=== PATIENT | female | born 1975 | race Caucasian/White ===

== ENCOUNTER 2022-07-22 15:49 | Emergency (ER) | payer MEDICAID ==
[~2022-07-22] VITALS: Ht 167.6 cm; Wt 65.0 kg
[2022-07-22 15:51] VITALS: BP 103/68
[2022-07-22] MEDS ORDERED: ketorolac trometh inj. 60 MG/2 ML VIAL IM ONE (16:45)
[2022-07-22] MEDS ORDERED: IBUP-1986 PO (16:48)
== END 2022-07-22 17:04 | disposition home or self-care (01) ==
LOC: ER 15:50
DX: S60.011A Contusion of right thumb without damage to nail, initial encounter (principal); X58.XXXA Exposure to other specified factors, initial encounter; Y93.89 Activity, other specified; Y92.89 Other specified places as the place of occurrence of the external cause; Y99.8 Other external cause status
CPT/HCPCS: 29125; 73130; 96372; 99283; J1885

== ENCOUNTER 2024-04-23 15:33 | Outpatient (CLI) | payer MEDICAID ==
[~2024-04-23 15:33] MED LIST: IBUP-1986 PO
[2024-04-23 16:09] VITALS: PULSE 84; RESP 16; O2SAT 96
== END 2024-04-23 23:59 | disposition home or self-care (01) ==
LOC: RT 15:33
PROVIDERS: ATTEND Nurse Practitioner Family
DX: J45.41 Moderate persistent asthma with (acute) exacerbation (principal)
CPT/HCPCS: 94010; 94760

== ENCOUNTER 2024-09-25 12:57 | Emergency (ER) | payer MEDICAID ==
[~2024-09-25] VITALS: Ht 167.6 cm; Wt 84.5 kg
[2024-09-25 13:00] VITALS: TEMP 97.9
[2024-09-25 13:34] LABS: MEAN PLATELET VOLUME 9.0 FL (7.4-10.4); RED CELL DISTRIBUTION WIDTH 12.7 % (11.5-14.5)
[2024-09-25 13:51] LABS: CREATININE 0.76 MG/DL (0.40-0.90); TOTAL CARBON DIOXIDE 26.5 MMOL/L (24-32); eCRCL 84 ML/MIN; eGFR 81 ML/MIN
--- NOTE | 2024-09-25 14:41 | RADIOLOGY REPORT ---
Exam: CT CT ABDOMEN PELVIS History: llq pain Comparison Study: None TECHNIQUE: Multidetector CT of the abdomen and pelvis without contrast. Imaging was performed without IV contrast. Axial, coronal and sagittal multiplanar reformats were obtained from the axial data set by the technologist. Radiation Dose Information: CT Dose: CTDI volume is 25.57 mGy. Dose-length product is 1361.81 mGy*cm FINDINGS: Bibasilar atelectasis. Partially visualized heart is unremarkable. Liver, spleen, pancreas and adrenal glands unremarkable. Status post cholecystectomy. Kidneys and ureters unremarkable. [id number] distention of the urinary bladder. Otherwise, th e urinary bladder is unremarkable. Uterus and adnexa unremarkable. Stomach is unremarkable. Mild wall thickening of fluid-filled small bowel segment within the left hem iabdomen without significant distention. The remainder of the small bowel loops unremarkable. Appendix is unremarkable. Small to moderate amount of fecal material within the colon. Large bowel is otherwise unremarkable. No evidence of intraperitoneal free air or free fluid. No evidence of aortic aneurysm. No significant lymphadenopathy. Tiny fat containing umbilical hernia. The soft tissues unremarkable. No destructive osseous lesions are noted. IMPRESSION: Segmental wall thickening of fluid-filled nondistended small bowel within the left hemiabdomen. Isis elate for enteritis. Khiw-ub-ocoqchze distention of the urinary bladder. Otherwise, the urinary bladder is unremarkable.
--- NOTE | 2024-09-25 14:47 | Physician Documentation ---
History of Present Illness Chief Complaint: Abdominal Pain Stated Complaint: ABD PAIN Time Seen by MD: 13:10 Mode of Arrival: POV, Ambulatory HPI 38-year-old female presents to the ED with a complaint of left lower quadrant pain and ongoing constipation. States that she has not last bowel movement yesterday and it was hard and nitro. Denies any fevers. However, she does take Wegovy. Last Menstrual Period: Sep 25, 2024 Medication Reconciliation Allergies: Coded Allergies: No Known Allergies (Unverified , 09/25/24) Scheduled Ibuprofen (Ibuprofen), 1 TAB PO Q8H Past Medical History Past Medical History: No Pertinent History Past Surgical History: no surgical history Last Menstrual Period: Sep 25, 2024 Lives with: Spouse Lives In: Home Occupation: employed Physical Exam Vital Signs: Temperature: 97.9, Source: Temporal, Heart Rate: 88, Respiratory Rate: 15, BP: 118/91, Pulse Oximetry: 99, Weight: 84.450 Oxygen Flow Rate: 0 Physical Exam General: Alert, no apparent distress. Cardiovascular: Regular rate and rhythm, no murmurs. Gastrointestinal: Soft, n tender to the left lower quadrant Psychiatric: Normal mood and affect. Skin: Normal color, warm and dry. No edema, no ecchymosis. Progress Results/Orders Results/Orders Orders - FAHEEM ADAME DRYWALLER Ct Abdomen Pelvis (09/25/24 14:17) Magnesium Citrate Oral Deb. (Magnesium C (09/25/24 14:45) Completed Orders - FAHEEM ADAME DRYWALLER Ct Abdomen Pelvis (09/25/24 14:17) Vital Signs 09/25/24 09/25/24 09/25/24 13:00 13:25 14:01 Temp 97.9 Pulse 108 88 Resp 20 16 15 B/P (MAP) 113/86 118/91 (100) Pulse Ox 99 99 O2 Flow Rate 0 0 Laboratory Tests Test 09/25/24 13:10 White Blood Count 11.9 H Red Blood Count 4.36 Hemoglobin 13.5 Hematocrit 39.2 Mean Corpuscular Volume 89.7 Mean Corpuscular Hemoglobin 31.0 Mean Corpuscular Hemoglobin Concent 34.6 Red Cell Distribution Width 12.7 Platelet Count 375 Mean Platelet Volume 9.0 Neutrophils (%) (Auto) 72.6 Lymphocytes (%) (Auto) 21.6 Monocytes (%) (Auto) 4.7 Eosinophils (%) (Auto) 0.8 Basophils (%) (Auto) 0.3 Neutrophils # (Auto) 8.6 H Lymphocytes # (Auto) 2.6 Monocytes # (Auto) 0.6 Eosinophils # (Auto) 0.1 Basophils # (Auto) 0.0 CBC Comment Sodium Level 135 Potassium Level 3.6 Chloride Level 99 Carbon Dioxide Level 26.5 Anion Gap 10 Blood Urea Nitrogen 11 Creatinine 0.76 Estimated GFR/1.73 m2 81 BUN/Creatinine Ratio 14.5 Glucose Level 92 Calcium Level 8.7 Total Bilirubin 0.5 Aspartate Amino Transf (AST/SGOT) 11 Alanine Aminotransferase (ALT/SGPT) 22 Alkaline Phosphatase 73 Total Protein 8.0 Albumin 3.8 Globulin 4.2 Albumin/Globulin Ratio 0.9 L Lipase 65 Chemistry Comments Medical Decision Making Findings Patient's CT did not indicate any signs and some small bowel obstruction or diverticulitis on laboratory values were mostly reassuring. I suspect patient's symptoms are likely secondary to GLP 1 on drugs mechanism of action to delay gastric motility essentially causing constipation Differential Dx:Considerations: Include: AAA, -Complete, - Incomplete, -Inevitable, -Missed, -Threatened, Abruptio placentae, Angina/WA, Aortic dissection, Appendicitis, Bowel obstruction, Cholangitis, Cholelithasis, Constipation, Diverticular disease, Esophageal rupture, Esophagitis, Gastritis/PUD, Gastroenteritis, GI hemorrhage, Hernia, Hepatitis, Inflammatory BD, Ischemic bowel, Ovarian cyst/torsion, Pancreatitis, PID, Porphyria, Trauma, intraabdominal, Urinary obstruction, Urinary tract infection, Urolithiasis, Other Departure Disposition: 01 HOME / SELF CARE / HOMELESS Impression: Primary Impression: Abdominal pain Additional Impression: Constipated Discharge Instructions: Constipation, Adult, [id number] Additional Instructions: When taking drugs like Wegovy and Ozempic it is important to maintain your bowel movements with stool softeners like a MiraLax Referrals: NO PRIMARY CARE PROVIDER (PCP) Education Educated: Patient Educated regarding: diagnosis Signature Scribe Signature: gb Attestation: Scribed for Faheem Adame Job Printer by Faheem Long NP . 09/25/24 18:08 FAHEEM ADAME NP Sep 25, 2024 14:46
[2024-09-25] MEDS: HYDROcodone/acetaminophen 10/325mg tab PO ONE (15:03)
[2024-09-25] MEDS: magnesium citrate 296ml oral solution PO ONE (15:34)
--- NOTE | 2024-09-25 15:41 | RADIOLOGY REPORT ---
Procedure: US ULTRASOUND PELVIS W/ORWO DPLX [facility] Study Date and Requested Time: 09/25/2024 03:13 PM Study Description: US ULTRASOUND PELVIS W/ORWO DPLX History: HX of endmetrioisis , left inguinal pain Comparison: None Technique: Multiple transabdominal and transvaginal high resolution luna-scale images obtained of the uterus and adnexa with color Doppler for evaluation of adnexal blood flow and vascularity as indicat ed. Findings: Uterus normal in size, measuring 8.6 x 4.8 x 5.2 cm, with homogeneous echotexture. Endometrium within normal limits, measuring 1.3 cm in thickness with smooth contour. Cervix within normal limits. Right ovary measures 3.6 x 2.8 x 3.7 cm. Left ovary measures 4.1 x 3.7 x 3.2 cm. Normal ovarian color Doppler flow bilaterally. No evidence of cystic or solid ovarian lesions. No evidence of free fluid in the cul-de-sac. Impression: Unremarkable sonographic study of the pelvis. Endometrial thickness of 1.3 cm. Recommend correlation with phase of menstrual cycle.
[2024-09-25 16:06] VITALS: BP 111/79; PULSE 102; RESP 16; O2SAT 97
== END 2024-09-25 16:07 | disposition home or self-care (01) ==
LOC: ER 12:58
DX: K59.00 Constipation, unspecified (principal); R10.32 Left lower quadrant pain; Z79.899 Other long term (current) drug therapy
CPT/HCPCS: 36415; 74176; 76856; 80053; 83690; 85025; 93976; 99284